=== PATIENT | male | born 1990 | race Asian ===

== ENCOUNTER 2016-11-02 20:59 | Emergency (ER) | payer OTHER ==
[~2016-11-02] VITALS: Ht 182.9 cm; Wt 79.5 kg
[~2016-11-02 20:59] MED LIST: TAMIFLU 75MG75 MG PO
[2016-11-02 21:03] VITALS: BP 131/73; PULSE 71; TEMP 98.1
[2016-11-02] MEDS ORDERED: SUDAFED30 MG PO (21:19)
[2016-11-02] MEDS ORDERED: AMOXICILLIN 50500 MG PO (21:19)
[2016-11-02] MEDS ORDERED: TYLENOL W/COD1 UDTAB PO (21:19)
== END 2016-11-02 21:43 | disposition home or self-care (01) ==
LOC: COL.ER 20:59
DX: H66.91 Otitis media, unspecified, right ear (principal)

== ENCOUNTER 2016-12-23 03:03 | Emergency (ER) | payer SELFPAY ==
[~2016-12-23] VITALS: Ht 172.7 cm; Wt 72.7 kg
[~2016-12-23 03:03] MED LIST changes: +AMOXICILLIN 50500 MG PO; +SUDAFED30 MG PO; +TYLENOL W/COD1 UDTAB PO
[2016-12-23 03:05] VITALS: BP 115/63; PULSE 88; TEMP 98.4
== END 2016-12-23 04:28 | disposition home or self-care (01) ==
LOC: COL.ER 03:03
DX: S60.212A Contusion of left wrist, initial encounter (principal); S60.812A Abrasion of left wrist, initial encounter; W01.10XA Fall on same level from slipping, tripping and stumbling with subsequent striking against unspecified object, initial encounter